=== PATIENT | male | born 1990 | race Caucasian/White ===

== ENCOUNTER 2018-07-24 12:52 | Emergency (ER) | payer MEDICAID ==
[~2018-07-24] VITALS: Ht 177.8 cm; Wt 87.5 kg
[2018-07-24] MEDS ORDERED: TETRACAINE HCL 0.5% OPHTHALMIC DROPS 15 ML OP ONE (12:53)
[2018-07-24] MEDS ORDERED: FLUORESCEIN SODIUM 1 MG OPHTHALMIC STRIP OP ONE ×2 (12:53→13:30)
[2018-07-24 12:55] VITALS: BP_SYST 143
[2018-07-24] MEDS ORDERED: PROPARACAINE (OPTHANINE 0.5%) 15 ML DROPS OP ONE (13:30)
[2018-07-24 13:47] LABS: BASOPHILS # (AUTO) 0.1 K/uL (0.0-0.2); BASOPHILS % (AUTO) 0.5 % (0.0-2.0); EOSINOPHILS # (AUTO) 0.2 K/uL (0.0-0.4); EOSINOPHILS % (AUTO) 2.2 % (0.0-4.0); HEMATOCRIT 47.5 % (36-54); HEMOGLOBIN 15.8 g/dL (14.0-18.0); LYMPHOCYTES # (AUTO) 1.5 K/uL (1.0-5.5); LYMPHOCYTES % (AUTO) 14.1 % (20.5-51.5); MEAN CORPUSCULAR HEMOGLOBIN 30 pg (27-31); MEAN CORPUSCULAR HGB CONC 33 % (32-36); MEAN CORPUSCULAR VOLUME 89 fL (79.0-98.0); MONOCYTES # (AUTO) 0.8 K/uL (0.0-1.0); MONOCYTES % (AUTO) 7.1 % (1.7-9.3); NEUTROPHILS % (AUTO) 76.1 % (40.0-70.0); PLATELET COUNT (AUTO) 309 K/uL (130-430); RED BLOOD CELL COUNT(AUTO) 5.34 MIL/uL (4.2-6.2); RED CELL DISTRIBUTION WIDTH 11.4 % (9.0-15.0); WHITE BLOOD COUNT (AUTO) 10.6 K/uL (4.8-10.8)
[2018-07-24 14:01] LABS: CALCIUM 8.6 mg/dL (8.4-11.0); CREATININE 0.85 mg/dL (0.55-1.30); POTASSIUM 4.1 mmol/L (3.5-5.1)
[2018-07-24 14:05] LABS: ALBUMIN 3.8 g/dL (3.4-4.8); C-REACTIVE PROTEIN QUANT 0.5 mg/dL (0-0.5); TOTAL BILIRUBIN 0.5 mg/dL (0.0-1.0)
[2018-07-24 16:07] LABS: ERYTHROCYTE SEDIMENTATION RATE 6 MM/HR (0-15)
[2018-07-24 16:12] VITALS: BP_SYST 143
== END 2018-07-24 16:12 | disposition home or self-care (01) ==
LOC: SED 12:52
DX: H10.9 Unspecified conjunctivitis (principal)
CPT/HCPCS: 36415; 80053; 85025; 85651-TC; 86140; 99283